=== PATIENT | male | born 1985 | race Caucasian/White ===

== ENCOUNTER 2019-04-21 12:20 | Emergency (ER) | payer BC, OTHER ==
[~2019-04-21] VITALS: Ht 185.4 cm; Wt 113.6 kg
[2019-04-21 13:14] LABS: BASOPHILS % (AUTO) 0.4 % (0-1); EOSINOPHILS # (AUTO) 0.1 X10'3 (0-0.9); HEMOGLOBIN 14.7 g/dl (14.0-17.9); LYMPHOCYTES # (AUTO) 1.3 X10'3 (1.1-4.8); LYMPHOCYTES % (AUTO) 28.5 % (21-51); MEAN CORPUSCULAR HEMOGLOBIN 29.2 PG (27.0-31.0); MEAN CORPUSCULAR HGB CONC 34.3 g/dL (33.0-36.5); MEAN CORPUSCULAR VOLUME 85.2 FL (78-98); MEAN PLATELET VOLUME 8.5 FL (7.4-10.4); MONOCYTES # (AUTO) 0.4 X10'3 (0-0.9); MONOCYTES % (AUTO) 9.2 % (2-12); NEUTROPHILS # (AUTO) 2.7 X10'3 (1.8-7.7); NEUTROPHILS % (AUTO) 59.9 % (42-75); PLATELET COUNT 195 X10'3 (140-440); RED BLOOD COUNT 5.05 X10'6 (4.70-6.10); RED CELL DISTRIBUTION WIDTH 12.4 % (11.5-14.5); WHITE BLOOD COUNT 4.5 X10'3 (4.5-11.0)
[2019-04-21 13:24] LABS: CLARITY,URINE CLEAR (Clear); COLOR,URINE YELLOW (Yellow); GLUCOSE, URINE NEGATIVE (Neg); KETONES,URINE NEGATIVE (Neg); LEUKOCYTE ESTERASE ,URINE NEGATIVE (Neg); NITRITES, URINE NEGATIVE (Neg); OCCULT BLOOD,URINE NEGATIVE (Neg); PROTEIN,URINE NEGATIVE (Neg); UA COLLECTION TYPE VOIDED; UROBILINOGEN,URINE 0.2 E.U/dL (0.2-1.0)
[2019-04-21 13:32] LABS: ALANINE AMINOTRANSFERASE 35 U/L (12-78); ALKALINE PHOSPHATASE 78 IU/L (46-116); ANION GAP 11 (8-16); ASPARTATE AMINO TRANSFERASE 23 U/L (10-37); BILIRUBIN,TOTAL 0.5 MG/DL (0.1-1.0); BLOOD UREA NITROGEN 9 MG/DL (7-18); BUN/CREATININE RATIO 7.8 (5.4-32.0); CALCIUM 9.1 MG/DL (8.5-10.1); CHLORIDE 102 MMOL/L (99-107); CREATININE 1.15 MG/DL (0.60-1.10); GLUCOSE 155 MG/DL (70-104); POTASSIUM 3.5 MMOL/L (3.5-5.1); SODIUM 140 MMOL/L (135-145); TOTAL CARBON DIOXIDE 26.9 MMOL/L (24-32); TOTAL PROTEIN 7.9 G/DL (6.4-8.2); eGFR 74 ML/MIN
[2019-04-21 16:03] VITALS: BP 149/101
== END 2019-04-21 16:04 | disposition home or self-care (01) ==
LOC: ER 12:22
DX: B34.9 Viral infection, unspecified (principal); M79.671 Pain in right foot; M54.2 Cervicalgia
CPT/HCPCS: 36415; 71045; 73630; 80053; 81003; 83605; 83735; 84145; 85025; 87040; 99284

== ENCOUNTER 2023-01-08 11:12 | Day surgery (SDC) | payer BC, OTHER ==
[2023-01-04 15:23] LABS: BASOPHILS % (AUTO) 0.5 % (0-1); EOSINOPHILS # (AUTO) 0.1 X10'3 (0-0.9); EOSINOPHILS % (AUTO) 1.4 % (0-6); HEMATOCRIT 46.2 % (42.0-52.0); HEMOGLOBIN 15.7 g/dl (14.0-17.9); LYMPHOCYTES # (AUTO) 2.7 X10'3 (1.1-4.8); MEAN CORPUSCULAR HEMOGLOBIN 29.6 PG (27.0-31.0); MEAN CORPUSCULAR HGB CONC 33.9 g/dL (33.0-36.5); MEAN CORPUSCULAR VOLUME 87.1 FL (78-98); MONOCYTES # (AUTO) 0.4 X10'3 (0-0.9); MONOCYTES % (AUTO) 6.6 % (2-12); NEUTROPHILS # (AUTO) 3.4 X10'3 (1.8-7.7); NEUTROPHILS % (AUTO) 50.5 % (42-75); PLATELET COUNT 206 X10'3 (140-440); RED CELL DISTRIBUTION WIDTH 12.5 % (11.5-14.5); WHITE BLOOD COUNT 6.7 X10'3 (4.5-11.0)
[2023-01-04 15:32] LABS: APTT 30 SECONDS (22-32); PROTHROMBIN TIME 11.1 SECONDS (9.0-12.0)
[2023-01-04 15:39] LABS: ANION GAP 6 (8-16); BLOOD UREA NITROGEN 13 MG/DL (7-18); CALCIUM 9.3 MG/DL (8.5-10.1); CHLORIDE 104 MMOL/L (99-107); CHOLESTEROL 176 MG/DL (0-200); CREATININE 0.93 MG/DL (0.60-1.10); GLUCOSE 88 MG/DL (70-104); HDL CHOLESTEROL 44 MG/DL (35-60); LDL CHOLESTEROL 113 MG/DL (50-100); SODIUM 138 MMOL/L (135-145); TOTAL CARBON DIOXIDE 27.7 MMOL/L (24-32); TRIGLYCERIDES 137 MG/DL (20-135); eGFR > 90 ML/MIN
[2023-01-08] VITALS (9 sets, daily range): BP systolic 96–123; BP diastolic 56–72; PULSE 49–82; RESP 12–21; TEMP 97.9; O2SAT 93–96
[~2023-01-08] VITALS: Ht 185.4 cm; Wt 106.6 kg
[2023-01-08] MEDS ORDERED: LORazepam 0.5 MG tablet PO PRN ×2 (11:50→13:30)
[2023-01-08] MEDS ORDERED: diphenhydrAMINE 25mg capsule PO PRN ×2 (11:50→13:30)
[2023-01-08] MEDS ORDERED: normal saline 1,000 ML IV SCH ×2 (11:50→13:30)
[2023-01-08] MEDS ORDERED: EMPA25TA PO (11:52)
[2023-01-08] MEDS ORDERED: APIX5TAB3 PO (11:52)
[2023-01-08] MEDS ORDERED: SACU1TAB7 PO (11:52)
[2023-01-08] MEDS ORDERED: SPIR25TA PO (11:52)
[2023-01-08] MEDS ORDERED: METO-411 PO (11:52)
[2023-01-08] MEDS ORDERED: heparin 1,000unit/ml 10ml vial 10 ML ONE (11:57)
[2023-01-08] MEDS ORDERED: verapamil 2.5 mg/ml inj IV ONE (11:57)
[2023-01-08] MEDS ORDERED: iohexol 350MG/ML 100ml bottle IV ONE (11:57)
[2023-01-08] MEDS ORDERED: fentaNYL/PF 50MCG/1 ML 2ML syringe ONE (11:57)
[2023-01-08] MEDS ORDERED: heparin 1,000 UNITS/NS 500ml 500 ML ONE (11:57)
[2023-01-08] MEDS ORDERED: midazolam 1 mg/ML 2ml injection ONE (11:57)
[2023-01-08] MEDS ORDERED: LIDOcaine 1% (10mg/ml) 2ml vial ONE (11:58)
[2023-01-08] MEDS ORDERED: nitroGLYCERIN 500mcg/5mL D5W 5 ML IV ONE (12:09)
[2023-01-08 15:02] LABS: ISTAT HGB MIX 14.6 g/dl (14.0-17.9); ISTAT Hct MIX 43 %PCV (42-52); ISTAT O2 SATURATION MIX VENOUS 63 % (60-80); ISTAT SOURCE VEN
[2023-01-08] MEDS ORDERED: ondansetron/PF 4mg/2ml inj IV PRN (15:15)
[2023-01-08] MEDS ORDERED: HYDROcodone/acetaminophen 5mg/325mg tablet PO PRN (15:20)
[2023-01-08] MEDS ORDERED: OXAZEpam 15mg capsule PO PRN (15:20)
[2023-01-08] MEDS ORDERED: proCHLORperazine 10 MG/2 ml inj IV PRN (15:20)
[2023-01-08] MEDS ORDERED: HYDROcodone/acetaminophen 10/325mg tab PO PRN (15:20)
== END 2023-01-08 17:05 | disposition home or self-care (01) ==
LOC: SSTAY O 11:12
PROVIDERS: ATTEND Student in an Organized Health Care Education/Training Program
DX: I34.0 Nonrheumatic mitral (valve) insufficiency (principal); I42.0 Dilated cardiomyopathy; I47.10 Supraventricular tachycardia, unspecified; I48.91 Unspecified atrial fibrillation; E78.5 Hyperlipidemia, unspecified; I11.0 Hypertensive heart disease with heart failure; I50.22 Chronic systolic (congestive) heart failure; Z79.899 Other long term (current) drug therapy; Z79.01 Long term (current) use of anticoagulants
CPT/HCPCS: 36415; 80048; 80061; 82803; 85014; 85025; 85610; 85730; 93005; 93460; 99152; J1644; J2250; J3010; J3490; J7030; Q0163; Q9967; A6258; A6402; A6449; C1751; C1769; C1894

== ENCOUNTER 2023-03-22 11:32 | Day surgery (SDC) | payer BC ==
[2023-03-22] VITALS (13 sets, daily range): BP systolic 90–108; BP diastolic 52–70; PULSE 60–73; RESP 12–16; TEMP 97.7; O2SAT 93–98
[~2023-03-22] VITALS: Ht 185.4 cm; Wt 109.3 kg
[~2023-03-22 11:32] MED LIST: APIX5TAB3 PO; EMPA25TA PO; METO-411 PO; SACU1TAB7 PO; SPIR25TA PO
[2023-03-22] MEDS ORDERED: fentaNYL/PF 50MCG/1 ML 2ML syringe IV ONE (11:50)
[2023-03-22] MEDS ORDERED: normal saline 1000ml 1,000 ML IV SCH (11:50)
[2023-03-22] MEDS ORDERED: MIDAZolam 1mg/ml 10ml vial IV ONE (11:50)
[2023-03-22] MEDS ORDERED: FURO20TA4 PO (11:57)
[2023-03-22] MEDS ORDERED: AMI200T PO (11:57)
[2023-03-22] MEDS ORDERED: RIVA20TA PO (11:57)
[2023-03-22] MEDS ORDERED: METO200T49 PO (11:57)
== END 2023-03-22 15:45 | disposition home or self-care (01) ==
LOC: SSTAY O 11:32
PROVIDERS: ATTEND Student in an Organized Health Care Education/Training Program
DX: I48.91 Unspecified atrial fibrillation (principal); I48.92 Unspecified atrial flutter; I11.0 Hypertensive heart disease with heart failure; I50.9 Heart failure, unspecified; E78.00 Pure hypercholesterolemia, unspecified; I42.0 Dilated cardiomyopathy; I34.0 Nonrheumatic mitral (valve) insufficiency; Z79.01 Long term (current) use of anticoagulants; Z79.899 Other long term (current) drug therapy; Z95.810 Presence of automatic (implantable) cardiac defibrillator
CPT/HCPCS: 92960; 93005; J2250; J3010; J7030; A4620